=== PATIENT | male | born 1935 | race Caucasian/White ===

== ENCOUNTER 2020-07-01 15:50 | Inpatient (IN) ==
[2020-07-01] MEDS ORDERED: Ipratropium Bromide 15 ML Spray NS PRN (17:34)
[2020-07-01] MEDS ORDERED: *HR* HYDROcodone/Acet 5/325 mg TABLET PO PRN (17:34)
[2020-07-01] MEDS ORDERED: Menthol 9.1 MG LOZENGE PO PRN (17:34)
[2020-07-01] MEDS ORDERED: polyethylene glycoL 3350 17 GM POWD.PACK PO PRN (17:34)
[2020-07-01] MEDS: *HR* FentaNYL PATCH 25 MCG PATCH TD SCH (20:30)
[2020-07-01] MEDS ORDERED: Furosemide 40 MG TABLET PO SCH (21:00)
[2020-07-02] MEDS ORDERED: Saline Nasal Spray 44 ML BOTTLE NS PRN (03:56)
[2020-07-02 06:42] LABS: Basophils % 0.1 %; Eosinophils % 0.1 %; Hematocrit 35.3 % (37.5-50.1); Hemoglobin 11.6 g/dL (12.9-16.9); Immature Granulocytes % 0.4 % (0-4); Lymphocytes # 1.7 K/mcL (0.6-4.6); Lymphocytes % 12.4 %; Mean Corpuscular HGB Conc 32.9 g/dL (31.6-35.5); Mean Corpuscular Hemoglobin 28.6 pg (28.0-33.3); Mean Corpuscular Volume 86.9 fL (83.0-100.0); Mean Platelet Volume 10.4 fL (9.4-12.4); Monocytes # 1.4 K/mcL (0.0-1.3); Monocytes % 9.7 %; Neutrophils # 10.8 K/mcL (1.6-8.9); Platelet Count 182 K/mcL (140-400); Red Blood Count 4.06 M/mcL (4.19-5.50); Red Cell Distribution Width 13.8 % (11.5-14.5); Segmented Neutrophils % 77.3 %
[2020-07-02 07:13] LABS: BUN/Creatinine Ratio 42 (6-26); Blood Urea Nitrogen 31 mg/dL (8-23); Carbon Dioxide 35 mEq/L (23-29); Chloride 82 mEq/L (98-107); Glucose 144 mg/dL (70-105); Osmolality,Calculated 269 (280-300); Potassium 3.4 mEq/L (3.5-5.1); Sodium 125 mEq/L (136-145); eGFR For African Americans > 60 (> 60); eGFR For Non-African Americans > 60 (> 60)
[2020-07-02] MEDS ORDERED: Furosemide 40 MG TABLET PO SCH (08:00)
[2020-07-02] MEDS: carvediloL 6.25 MG TABLET PO SCH ×2 (08:36→18:12)
[2020-07-02] MEDS: Aspirin Enteric Coated 81 MG Tablet PO SCH (08:36)
[2020-07-02] MEDS: lisinopriL 5 MG TABLET PO SCH (08:36)
[2020-07-02] MEDS ORDERED: UBIDECARENONE 100 MG PO SCH (09:00)
[2020-07-02] MEDS: Ringers Solution, Lactated 1,000 ML IVC SCH ×2 (12:05→22:37)
[2020-07-02] MEDS ORDERED: *HR* Dextrose 50 % in Water (Vial) 50 ML VIAL IVP PRN (14:09)
[2020-07-02] MEDS ORDERED: Dextrose Gel 15 GM/37.5 ML TUBE PO PRN ×2 (14:09)
[2020-07-02] MEDS ORDERED: D5% in Water 1,000 ML IVC PRN (14:09)
[2020-07-02 17:21] LABS: Bilirubin,Urine Negative (Negative); Blood,Urine Trace-intact (Negative); Clarity,Urine Clear (Clear); Glucose,Urine (UA) Normal (Normal); Ketones,Urine Negative (Negative); Leukocyte Esterase,Urine Negative (Negative); Nitrite,Urine Negative (Negative); PH,Urine 6.5 pH Units (5.0-8.0); Protein,Urine Negative (Neg-Trace); Urobilinogen,Urine Normal (Normal)
[2020-07-02 17:32] LABS: Color,Urine Light Yellow (Yellow)
[2020-07-02 17:34] LABS: RBC,Urine 0-3 per hpf (0-3); Squamous Epithelial Cell,Urine Few per hpf (None-Few)
[2020-07-02] MEDS: Insulin LISPRO 300 UNITS/3 ML VIAL SUBQ SCH (18:05)
[2020-07-02] MEDS ORDERED: *HR* LORazepam 2 MG/ML VIAL IVP ONE (18:20)
[2020-07-03 05:29] LABS: Eosinophils % 0.5 %; Hematocrit 35.7 % (37.5-50.1); Hemoglobin 11.7 g/dL (12.9-16.9); Immature Granulocytes % 0.4 % (0-4); Lymphocytes # 1.8 K/mcL (0.6-4.6); Lymphocytes % 20.7 %; Mean Corpuscular HGB Conc 32.8 g/dL (31.6-35.5); Mean Corpuscular Hemoglobin 28.7 pg (28.0-33.3); Mean Corpuscular Volume 87.7 fL (83.0-100.0); Mean Platelet Volume 10.4 fL (9.4-12.4); Monocytes % 11.5 %; Neutrophils # 5.7 K/mcL (1.6-8.9); Platelet Count 184 K/mcL (140-400); Red Blood Count 4.07 M/mcL (4.19-5.50); Red Cell Distribution Width 13.8 % (11.5-14.5); Segmented Neutrophils % 66.9 %; White Blood Count 8.5 K/mcL (4.3-11.1)
[2020-07-03 05:54] LABS: Alanine Aminotransferase 26 Units/L (7-52); Albumin 3.7 g/dL (3.5-5.7); Albumin/Globulin Ratio 1.7 (1.1-2.2); Alkaline Phosphatase 52 Units/L (34-104); Aspartate Amino Transferase 21 Units/L (13-39); BUN/Creatinine Ratio 36 (6-26); Blood Urea Nitrogen 26 mg/dL (8-23); Carbon Dioxide 39 mEq/L (23-29); Chloride 86 mEq/L (98-107); Globulin 2.2 g/dL (2.4-3.5); Glucose 121 mg/dL (70-105); Osmolality,Calculated 276 (280-300); Potassium 3.7 mEq/L (3.5-5.1); Sodium 130 mEq/L (136-145); Total Protein 5.9 g/dL (6.4-8.9); eGFR For African Americans > 60 (> 60); eGFR For Non-African Americans > 60 (> 60)
[2020-07-03] MEDS: Insulin LISPRO 300 UNITS/3 ML VIAL SUBQ SCH ×3 (08:29→17:25)
[2020-07-03] MEDS: Aspirin Enteric Coated 81 MG Tablet PO SCH (08:29)
[2020-07-03] MEDS: carvediloL 6.25 MG TABLET PO SCH ×2 (08:30→17:25)
[2020-07-03] MEDS: lisinopriL 5 MG TABLET PO SCH (08:30)
[2020-07-03 09:08] LABS: Estimated Average Glucose 140 mg/dl; Hemoglobin A1C 6.5 %
[2020-07-03] MEDS ORDERED: Acetaminophen 325 MG TABLET PO PRN (13:50)
[2020-07-04] MEDS: Aspirin Enteric Coated 81 MG Tablet PO SCH (08:15)
[2020-07-04] MEDS: Insulin LISPRO 300 UNITS/3 ML VIAL SUBQ SCH ×4 (08:15→20:47)
[2020-07-04] MEDS: carvediloL 6.25 MG TABLET PO SCH ×2 (08:21→16:39)
[2020-07-04] MEDS: lisinopriL 5 MG TABLET PO SCH (08:21)
[2020-07-04] MEDS ORDERED: Ondansetron ODT 4 MG TAB.RAPDIS SL PRN (11:26)
[2020-07-04] MEDS: *HR* FentaNYL PATCH 25 MCG PATCH TD SCH (16:36)
[2020-07-04] MEDS: rOPINIRole 0.25 MG TABLET PO SCH (20:46)
[2020-07-04] MEDS: traZODone 50 MG TABLET PO PRN (20:47)
[2020-07-05] MEDS: carvediloL 6.25 MG TABLET PO SCH ×2 (08:20→17:33)
[2020-07-05] MEDS: Aspirin Enteric Coated 81 MG Tablet PO SCH (08:20)
[2020-07-05] MEDS: Insulin LISPRO 300 UNITS/3 ML VIAL SUBQ SCH ×4 (08:21→20:58)
[2020-07-05] MEDS: lisinopriL 5 MG TABLET PO SCH (08:21)
[2020-07-05] MEDS ORDERED: Ringers Solution, Lactated 500 ML IVC ONE ×2 (20:24→22:30)
[2020-07-05] MEDS: rOPINIRole 0.25 MG TABLET PO SCH (20:58)
[2020-07-06] MEDS: Insulin LISPRO 300 UNITS/3 ML VIAL SUBQ SCH ×4 (08:00→19:55)
[2020-07-06] MEDS: lisinopriL 5 MG TABLET PO SCH (08:05)
[2020-07-06] MEDS: Aspirin Enteric Coated 81 MG Tablet PO SCH (09:43)
[2020-07-06] MEDS: carvediloL 6.25 MG TABLET PO SCH ×2 (09:43→16:35)
[2020-07-06] MEDS: rOPINIRole 0.25 MG TABLET PO SCH (19:57)
[2020-07-06] MEDS: traZODone 50 MG TABLET PO PRN (19:57)
[2020-07-07] MEDS: Aspirin Enteric Coated 81 MG Tablet PO SCH (08:03)
[2020-07-07] MEDS: Insulin LISPRO 300 UNITS/3 ML VIAL SUBQ SCH ×4 (08:03→21:00)
[2020-07-07] MEDS: carvediloL 6.25 MG TABLET PO SCH ×2 (08:04→17:14)
[2020-07-07 10:49] LABS: Alanine Aminotransferase 20 Units/L (7-52); Albumin 3.9 g/dL (3.5-5.7); Albumin/Globulin Ratio 1.6 (1.1-2.2); Alkaline Phosphatase 59 Units/L (34-104); Aspartate Amino Transferase 15 Units/L (13-39); BUN/Creatinine Ratio 18 (6-26); Bilirubin,Total 0.6 mg/dL (0.3-1.0); Blood Urea Nitrogen 12 mg/dL (8-23); Carbon Dioxide 34 mEq/L (23-29); Chloride 93 mEq/L (98-107); Globulin 2.5 g/dL (2.4-3.5); Glucose 191 mg/dL (70-105); Osmolality,Calculated 277 (280-300); Potassium 4.6 mEq/L (3.5-5.1); Sodium 131 mEq/L (136-145); Total Protein 6.4 g/dL (6.4-8.9); eGFR For African Americans > 60 (> 60); eGFR For Non-African Americans > 60 (> 60)
[2020-07-07] MEDS: *HR* FentaNYL PATCH 25 MCG PATCH TD SCH (17:13)
[2020-07-07] MEDS: rOPINIRole 0.25 MG TABLET PO SCH (21:00)
[2020-07-08] MEDS: Insulin LISPRO 300 UNITS/3 ML VIAL SUBQ SCH ×4 (07:18→21:12)
[2020-07-08] MEDS: Furosemide 40 MG TABLET PO SCH (08:24)
[2020-07-08] MEDS: Aspirin Enteric Coated 81 MG Tablet PO SCH (08:24)
[2020-07-08] MEDS: polyethylene glycoL 3350 17 GM POWD.PACK PO SCH (08:25)
[2020-07-08] MEDS: carvediloL 6.25 MG TABLET PO SCH ×2 (08:25→16:12)
[2020-07-08] MEDS: traZODone 50 MG TABLET PO PRN (21:12)
[2020-07-08] MEDS: rOPINIRole 0.25 MG TABLET PO SCH (21:12)
[2020-07-09 07:25] LABS: Basophils % 0.3 %; Eosinophils # 0.1 K/mcL (0.0-0.6); Eosinophils % 1.9 %; Hematocrit 32.4 % (37.5-50.1); Hemoglobin 10.4 g/dL (12.9-16.9); Immature Granulocytes % 0.5 % (0-4); Lymphocytes # 1.6 K/mcL (0.6-4.6); Lymphocytes % 21.7 %; Mean Corpuscular HGB Conc 32.1 g/dL (31.6-35.5); Mean Corpuscular Volume 90.3 fL (83.0-100.0); Mean Platelet Volume 10.4 fL (9.4-12.4); Monocytes # 0.8 K/mcL (0.0-1.3); Monocytes % 10.2 %; Neutrophils # 4.9 K/mcL (1.6-8.9); Platelet Count 196 K/mcL (140-400); Red Blood Count 3.59 M/mcL (4.19-5.50); Red Cell Distribution Width 14.5 % (11.5-14.5); Segmented Neutrophils % 65.4 %; White Blood Count 7.4 K/mcL (4.3-11.1)
[2020-07-09 07:54] LABS: BUN/Creatinine Ratio 25 (6-26); Blood Urea Nitrogen 14 mg/dL (8-23); Calcium 8.5 mg/dL (8.6-10.3); Carbon Dioxide 36 mEq/L (23-29); Chloride 93 mEq/L (98-107); Glucose 146 mg/dL (70-105); Osmolality,Calculated 277 (280-300); Potassium 4.3 mEq/L (3.5-5.1); Sodium 132 mEq/L (136-145); eGFR For African Americans > 60 (> 60); eGFR For Non-African Americans > 60 (> 60)
[2020-07-09] MEDS: Furosemide 40 MG TABLET PO SCH (08:07)
[2020-07-09] MEDS: Aspirin Enteric Coated 81 MG Tablet PO SCH (08:07)
[2020-07-09] MEDS: carvediloL 6.25 MG TABLET PO SCH ×2 (08:07→17:01)
[2020-07-09] MEDS: Insulin LISPRO 300 UNITS/3 ML VIAL SUBQ SCH ×4 (08:07→20:46)
[2020-07-09] MEDS: polyethylene glycoL 3350 17 GM POWD.PACK PO SCH (08:08)
[2020-07-09] MEDS: *HR* Heparin 5,000 UNIT/ML VIAL SQ SCH (20:49)
[2020-07-09] MEDS: rOPINIRole 0.25 MG TABLET PO SCH (20:49)
[2020-07-09] MEDS: traZODone 50 MG TABLET PO PRN (20:49)
[2020-07-10] MEDS: *HR* Heparin 5,000 UNIT/ML VIAL SQ SCH ×2 (05:50→14:24)
[2020-07-10 07:39] VITALS: BP 112/69
[2020-07-10] MEDS: Insulin LISPRO 300 UNITS/3 ML VIAL SUBQ SCH ×2 (07:51→11:58)
[2020-07-10] MEDS: carvediloL 6.25 MG TABLET PO SCH (09:04)
[2020-07-10] MEDS: Aspirin Enteric Coated 81 MG Tablet PO SCH (09:04)
[2020-07-10] MEDS: polyethylene glycoL 3350 17 GM POWD.PACK PO SCH (09:04)
[2020-07-10] MEDS: Furosemide 40 MG TABLET PO SCH (09:04)
[2020-07-10] MEDS ORDERED: Lactulose 200 GM, Sodium Chloride IRRigation 700 ML RC ONE (12:58)
== END 2020-07-10 16:00 | disposition home health service (06) | DRG 945 ==
LOC: INPPIK 18:50
PROVIDERS: ADMIT Family Medicine; ATTEND Family Medicine

== ENCOUNTER 2020-07-16 16:57 | Inpatient (IN) ==
[2020-07-16] MEDS ORDERED: polyethylene glycoL 3350 17 GM POWD.PACK PO PRN (17:30)
[2020-07-16] MEDS ORDERED: (Ipratropium Bromide 15 ML Spray) NS PRN (19:23)
[2020-07-16] MEDS: carvediloL 6.25 MG TABLET PO SCH (20:59)
[2020-07-16] MEDS: Apixaban 5 MG TABLET PO SCH (20:59)
[2020-07-16] MEDS: rOPINIRole 0.25 MG TABLET PO SCH (20:59)
[2020-07-16] MEDS ORDERED: Menthol 9.1 MG LOZENGE PO PRN (22:36)
[2020-07-17] MEDS: traZODone 50 MG TABLET PO PRN ×2 (01:46→21:44)
[2020-07-17 05:24] LABS: Basophils % 0.3 %; Eosinophils # 0.1 K/mcL (0.0-0.6); Eosinophils % 1.5 %; Hematocrit 30.7 % (37.5-50.1); Hemoglobin 9.7 g/dL (12.9-16.9); Immature Granulocytes % 0.4 % (0-4); Lymphocytes # 1.5 K/mcL (0.6-4.6); Lymphocytes % 18.2 %; Mean Corpuscular HGB Conc 31.6 g/dL (31.6-35.5); Mean Corpuscular Volume 91.6 fL (83.0-100.0); Mean Platelet Volume 10.4 fL (9.4-12.4); Monocytes # 0.7 K/mcL (0.0-1.3); Monocytes % 8.3 %; Neutrophils # 5.7 K/mcL (1.6-8.9); Platelet Count 130 K/mcL (140-400); Red Blood Count 3.35 M/mcL (4.19-5.50); Red Cell Distribution Width 15.2 % (11.5-14.5); Segmented Neutrophils % 71.3 %
[2020-07-17 05:47] LABS: BUN/Creatinine Ratio 13 (6-26); Blood Urea Nitrogen 7 mg/dL (8-23); Calcium 8.7 mg/dL (8.6-10.3); Carbon Dioxide 35 mEq/L (23-29); Chloride 94 mEq/L (98-107); Glucose 115 mg/dL (70-105); Osmolality,Calculated 277 (280-300); Potassium 3.8 mEq/L (3.5-5.1); Sodium 134 mEq/L (136-145); eGFR For African Americans > 60 (> 60); eGFR For Non-African Americans > 60 (> 60)
[2020-07-17 06:18] LABS: Platelet Estimate Slight Decrease (Normal)
[2020-07-17] MEDS: lisinopriL 5 MG TABLET PO SCH (08:22)
[2020-07-17] MEDS: UBIDECARENONE 100 MG PO SCH (08:22)
[2020-07-17] MEDS: Aspirin Enteric Coated 81 MG Tablet PO SCH (08:22)
[2020-07-17] MEDS: carvediloL 6.25 MG TABLET PO SCH ×2 (08:22→21:44)
[2020-07-17] MEDS: Apixaban 5 MG TABLET PO SCH ×2 (08:22→21:44)
[2020-07-17] MEDS ORDERED: polyethylene glycoL 3350 17 GM POWD.PACK PO PRN (15:15)
[2020-07-17] MEDS: Sennosides/Docusate Sodium TABLET PO SCH (21:43)
[2020-07-17] MEDS: Gabapentin 300 MG CAPSULE PO SCH (21:44)
[2020-07-17] MEDS: rOPINIRole 0.25 MG TABLET PO SCH (21:44)
[2020-07-18 05:33] LABS: Alanine Aminotransferase 41 Units/L (7-52); Albumin 3.1 g/dL (3.5-5.7); Albumin/Globulin Ratio 1.4 (1.1-2.2); Alkaline Phosphatase 63 Units/L (34-104); Aspartate Amino Transferase 18 Units/L (13-39); BUN/Creatinine Ratio 19 (6-26); Bilirubin,Total 0.7 mg/dL (0.3-1.0); Blood Urea Nitrogen 10 mg/dL (8-23); Calcium 8.7 mg/dL (8.6-10.3); Carbon Dioxide 37 mEq/L (23-29); Chloride 94 mEq/L (98-107); Globulin 2.2 g/dL (2.4-3.5); Glucose 121 mg/dL (70-105); Osmolality,Calculated 278 (280-300); Potassium 4.1 mEq/L (3.5-5.1); Sodium 134 mEq/L (136-145); Total Protein 5.3 g/dL (6.4-8.9); eGFR For African Americans > 60 (> 60); eGFR For Non-African Americans > 60 (> 60)
[2020-07-18] MEDS: lisinopriL 5 MG TABLET PO SCH (08:12)
[2020-07-18] MEDS: carvediloL 6.25 MG TABLET PO SCH ×2 (08:12→21:38)
[2020-07-18] MEDS: Sennosides/Docusate Sodium TABLET PO SCH ×2 (08:12→21:38)
[2020-07-18] MEDS: UBIDECARENONE 100 MG PO SCH (08:13)
[2020-07-18] MEDS: Aspirin Enteric Coated 81 MG Tablet PO SCH (08:13)
[2020-07-18] MEDS: Apixaban 5 MG TABLET PO SCH ×2 (08:13→21:38)
[2020-07-18] MEDS: Gabapentin 300 MG CAPSULE PO SCH ×3 (08:13→21:38)
[2020-07-18] MEDS ORDERED: polyethylene glycoL 3350 17 GM POWD.PACK PO SCH (09:00)
[2020-07-18] MEDS: rOPINIRole 0.25 MG TABLET PO SCH (21:38)
[2020-07-19] MEDS: Aspirin Enteric Coated 81 MG Tablet PO SCH (10:07)
[2020-07-19] MEDS: Apixaban 5 MG TABLET PO SCH ×2 (10:08→19:34)
[2020-07-19] MEDS: Sennosides/Docusate Sodium TABLET PO SCH ×2 (10:08→19:34)
[2020-07-19] MEDS: lisinopriL 5 MG TABLET PO SCH (10:08)
[2020-07-19] MEDS: Gabapentin 300 MG CAPSULE PO SCH ×3 (10:08→19:34)
[2020-07-19] MEDS: carvediloL 6.25 MG TABLET PO SCH ×2 (10:08→19:34)
[2020-07-19] MEDS: UBIDECARENONE 100 MG PO SCH (10:10)
[2020-07-19] MEDS: *HR* Metformin 500 MG TABLET PO SCH (18:08)
[2020-07-19] MEDS: traZODone 50 MG TABLET PO PRN (19:34)
[2020-07-19] MEDS: rOPINIRole 0.25 MG TABLET PO SCH (19:34)
[2020-07-20] MEDS: Sennosides/Docusate Sodium TABLET PO SCH ×2 (09:57→20:36)
[2020-07-20] MEDS: Gabapentin 300 MG CAPSULE PO SCH ×2 (09:58→14:33)
[2020-07-20] MEDS: lisinopriL 5 MG TABLET PO SCH (09:58)
[2020-07-20] MEDS: *HR* Metformin 500 MG TABLET PO SCH ×2 (09:58→17:38)
[2020-07-20] MEDS: carvediloL 6.25 MG TABLET PO SCH ×2 (09:58→19:38)
[2020-07-20] MEDS: Apixaban 5 MG TABLET PO SCH ×2 (09:58→20:37)
[2020-07-20] MEDS: Aspirin Enteric Coated 81 MG Tablet PO SCH (09:58)
[2020-07-20] MEDS: UBIDECARENONE 100 MG PO SCH (09:59)
[2020-07-20] MEDS: Gabapentin 100 MG CAPSULE PO SCH (20:36)
[2020-07-20] MEDS: rOPINIRole 0.25 MG TABLET PO SCH (20:36)
[2020-07-21] MEDS: Acetaminophen 325 MG TABLET PO PRN (07:09)
[2020-07-21] MEDS: carvediloL 6.25 MG TABLET PO SCH ×2 (08:03→21:33)
[2020-07-21] MEDS: *HR* Metformin 500 MG TABLET PO SCH ×2 (08:04→17:11)
[2020-07-21] MEDS: Aspirin Enteric Coated 81 MG Tablet PO SCH (08:04)
[2020-07-21] MEDS: Apixaban 5 MG TABLET PO SCH ×2 (08:04→21:33)
[2020-07-21] MEDS: lisinopriL 5 MG TABLET PO SCH (08:04)
[2020-07-21] MEDS: Gabapentin 100 MG CAPSULE PO SCH ×2 (08:04→17:23)
[2020-07-21] MEDS: UBIDECARENONE 100 MG PO SCH (08:05)
[2020-07-21] MEDS: Sennosides/Docusate Sodium TABLET PO SCH ×2 (08:05→21:43)
[2020-07-21] MEDS: rOPINIRole 0.25 MG TABLET PO SCH (21:32)
[2020-07-21] MEDS: Gabapentin 300 MG CAPSULE PO SCH (21:33)
[2020-07-22] MEDS: Acetaminophen 325 MG TABLET PO PRN (06:31)
[2020-07-22] MEDS: Sennosides/Docusate Sodium TABLET PO SCH ×2 (08:33→20:34)
[2020-07-22] MEDS: carvediloL 6.25 MG TABLET PO SCH ×2 (08:34→20:35)
[2020-07-22] MEDS: *HR* Metformin 500 MG TABLET PO SCH ×2 (08:34→17:16)
[2020-07-22] MEDS: Aspirin Enteric Coated 81 MG Tablet PO SCH (08:34)
[2020-07-22] MEDS: Apixaban 5 MG TABLET PO SCH ×2 (08:34→20:35)
[2020-07-22] MEDS: UBIDECARENONE 100 MG PO SCH (08:34)
[2020-07-22] MEDS: lisinopriL 5 MG TABLET PO SCH (08:34)
[2020-07-22] MEDS: Gabapentin 300 MG CAPSULE PO SCH (20:35)
[2020-07-22] MEDS: rOPINIRole 0.25 MG TABLET PO SCH (20:35)
[2020-07-23 07:33] LABS: Basophils % 0.2 %; Eosinophils # 0.1 K/mcL (0.0-0.6); Eosinophils % 1.4 %; Hematocrit 32.9 % (37.5-50.1); Hemoglobin 10.9 g/dL (12.9-16.9); Immature Granulocytes % 0.3 % (0-4); Lymphocytes # 1.1 K/mcL (0.6-4.6); Lymphocytes % 17.5 %; Mean Corpuscular HGB Conc 33.1 g/dL (31.6-35.5); Mean Corpuscular Hemoglobin 29.3 pg (28.0-33.3); Mean Corpuscular Volume 88.4 fL (83.0-100.0); Mean Platelet Volume 10.2 fL (9.4-12.4); Monocytes # 0.7 K/mcL (0.0-1.3); Monocytes % 10.6 %; Neutrophils # 4.6 K/mcL (1.6-8.9); Platelet Count 194 K/mcL (140-400); Red Blood Count 3.72 M/mcL (4.19-5.50); Red Cell Distribution Width 14.8 % (11.5-14.5); White Blood Count 6.5 K/mcL (4.3-11.1)
[2020-07-23 07:46] LABS: BUN/Creatinine Ratio 16 (6-26); Blood Urea Nitrogen 7 mg/dL (8-23); Calcium 8.6 mg/dL (8.6-10.3); Carbon Dioxide 32 mEq/L (23-29); Chloride 88 mEq/L (98-107); Glucose 129 mg/dL (70-105); Osmolality,Calculated 258 (280-300); Potassium 4.2 mEq/L (3.5-5.1); Sodium 124 mEq/L (136-145); eGFR For African Americans > 60 (> 60); eGFR For Non-African Americans > 60 (> 60)
[2020-07-23] MEDS: UBIDECARENONE 100 MG PO SCH (09:00)
[2020-07-23] MEDS: Aspirin Enteric Coated 81 MG Tablet PO SCH (09:01)
[2020-07-23] MEDS: Apixaban 5 MG TABLET PO SCH ×2 (09:01→20:52)
[2020-07-23] MEDS: carvediloL 6.25 MG TABLET PO SCH ×2 (09:01→20:52)
[2020-07-23] MEDS: Sennosides/Docusate Sodium TABLET PO SCH (09:01)
[2020-07-23] MEDS: *HR* Metformin 500 MG TABLET PO SCH ×2 (09:03→17:23)
[2020-07-23 09:38] LABS: Magnesium 1.6 mg/dL (1.6-2.6); Phosphorous 2.5 mg/dL (2.7-4.5)
[2020-07-23] MEDS: Acetaminophen 325 MG TABLET PO PRN (14:59)
[2020-07-23] MEDS: Ringers Solution, Lactated 1,000 ML IVC SCH (15:21)
[2020-07-23 16:58] LABS: Alanine Aminotransferase 23 Units/L (7-52); Albumin 3.2 g/dL (3.5-5.7); Albumin/Globulin Ratio 1.3 (1.1-2.2); Alkaline Phosphatase 69 Units/L (34-104); Aspartate Amino Transferase 17 Units/L (13-39); BUN/Creatinine Ratio 21 (6-26); Bilirubin,Total 0.4 mg/dL (0.3-1.0); Blood Urea Nitrogen 9 mg/dL (8-23); Calcium 8.2 mg/dL (8.6-10.3); Carbon Dioxide 31 mEq/L (23-29); Chloride 89 mEq/L (98-107); Globulin 2.4 g/dL (2.4-3.5); Glucose 111 mg/dL (70-105); Osmolality,Calculated 259 (280-300); Potassium 4.3 mEq/L (3.5-5.1); Sodium 125 mEq/L (136-145); Total Protein 5.6 g/dL (6.4-8.9); eGFR For African Americans > 60 (> 60); eGFR For Non-African Americans > 60 (> 60)
[2020-07-23] MEDS: rOPINIRole 0.25 MG TABLET PO SCH (20:52)
[2020-07-23] MEDS: traZODone 50 MG TABLET PO PRN (20:52)
[2020-07-23] MEDS: Gabapentin 300 MG CAPSULE PO SCH (20:52)
[2020-07-24] MEDS: Ringers Solution, Lactated 1,000 ML IVC SCH (00:03)
[2020-07-24] MEDS ORDERED: Ringers Solution, Lactated 1,000 ML IVC SCH (01:30)
[2020-07-24 06:09] LABS: Alanine Aminotransferase 23 Units/L (7-52); Albumin 3.2 g/dL (3.5-5.7); Albumin/Globulin Ratio 1.3 (1.1-2.2); Alkaline Phosphatase 70 Units/L (34-104); Aspartate Amino Transferase 16 Units/L (13-39); BUN/Creatinine Ratio 14 (6-26); Bilirubin,Total 0.5 mg/dL (0.3-1.0); Blood Urea Nitrogen 7 mg/dL (8-23); Calcium 8.7 mg/dL (8.6-10.3); Carbon Dioxide 35 mEq/L (23-29); Chloride 95 mEq/L (98-107); Globulin 2.4 g/dL (2.4-3.5); Glucose 100 mg/dL (70-105); Osmolality,Calculated 274 (280-300); Phosphorous 3.1 mg/dL (2.7-4.5); Potassium 4.1 mEq/L (3.5-5.1); Sodium 133 mEq/L (136-145); Total Protein 5.6 g/dL (6.4-8.9); eGFR For African Americans > 60 (> 60); eGFR For Non-African Americans > 60 (> 60)
[2020-07-24] MEDS: UBIDECARENONE 100 MG PO SCH (09:43)
[2020-07-24] MEDS: carvediloL 6.25 MG TABLET PO SCH (09:44)
[2020-07-24] MEDS: Aspirin Enteric Coated 81 MG Tablet PO SCH (09:44)
[2020-07-24] MEDS: Apixaban 5 MG TABLET PO SCH ×2 (09:45→21:10)
[2020-07-24] MEDS: *HR* Metformin 500 MG TABLET PO SCH ×2 (09:45→17:03)
[2020-07-24] MEDS: Acetaminophen 325 MG TABLET PO PRN (15:06)
[2020-07-24] MEDS: traZODone 50 MG TABLET PO PRN (21:10)
[2020-07-24] MEDS: rOPINIRole 0.25 MG TABLET PO SCH (21:10)
[2020-07-24] MEDS: Gabapentin 300 MG CAPSULE PO SCH (21:10)
[2020-07-25 04:30] LABS: Alanine Aminotransferase 22 Units/L (7-52); Albumin 3.2 g/dL (3.5-5.7); Albumin/Globulin Ratio 1.5 (1.1-2.2); Alkaline Phosphatase 67 Units/L (34-104); Aspartate Amino Transferase 15 Units/L (13-39); BUN/Creatinine Ratio 20 (6-26); Bilirubin,Total 0.4 mg/dL (0.3-1.0); Blood Urea Nitrogen 10 mg/dL (8-23); Calcium 8.5 mg/dL (8.6-10.3); Carbon Dioxide 35 mEq/L (23-29); Chloride 97 mEq/L (98-107); Globulin 2.2 g/dL (2.4-3.5); Glucose 113 mg/dL (70-105); Osmolality,Calculated 282 (280-300); Potassium 4.3 mEq/L (3.5-5.1); Sodium 136 mEq/L (136-145); Total Protein 5.4 g/dL (6.4-8.9); eGFR For African Americans > 60 (> 60); eGFR For Non-African Americans > 60 (> 60)
[2020-07-25] MEDS: *HR* Metformin 500 MG TABLET PO SCH ×2 (08:53→17:10)
[2020-07-25] MEDS: Apixaban 5 MG TABLET PO SCH ×2 (08:53→21:05)
[2020-07-25] MEDS: Aspirin Enteric Coated 81 MG Tablet PO SCH (08:53)
[2020-07-25] MEDS: UBIDECARENONE 100 MG PO SCH (08:55)
[2020-07-25] MEDS: Acetaminophen 325 MG TABLET PO PRN (12:03)
[2020-07-25] MEDS ORDERED: Metoprolol XL (24 HR) Succ 25 MG TAB.ER.24H PO SCH ×2 (18:00)
[2020-07-25] MEDS: rOPINIRole 0.25 MG TABLET PO SCH (21:04)
[2020-07-25] MEDS: Gabapentin 300 MG CAPSULE PO SCH (21:05)
[2020-07-25] MEDS: traZODone 50 MG TABLET PO SCH (21:05)
[2020-07-26] MEDS: Acetaminophen 325 MG TABLET PO PRN (01:45)
[2020-07-26 08:14] LABS: Alanine Aminotransferase 19 Units/L (7-52); Albumin 3.1 g/dL (3.5-5.7); Albumin/Globulin Ratio 1.3 (1.1-2.2); Alkaline Phosphatase 63 Units/L (34-104); Aspartate Amino Transferase 16 Units/L (13-39); BUN/Creatinine Ratio 23 (6-26); Bilirubin,Total 0.4 mg/dL (0.3-1.0); Blood Urea Nitrogen 11 mg/dL (8-23); Calcium 8.3 mg/dL (8.6-10.3); Carbon Dioxide 33 mEq/L (23-29); Chloride 96 mEq/L (98-107); Globulin 2.3 g/dL (2.4-3.5); Glucose 107 mg/dL (70-105); Osmolality,Calculated 276 (280-300); Potassium 4.2 mEq/L (3.5-5.1); Sodium 133 mEq/L (136-145); Total Protein 5.4 g/dL (6.4-8.9); eGFR For African Americans > 60 (> 60); eGFR For Non-African Americans > 60 (> 60)
[2020-07-26] MEDS: *HR* Metformin 500 MG TABLET PO SCH ×2 (09:24→17:10)
[2020-07-26] MEDS: Aspirin Enteric Coated 81 MG Tablet PO SCH (09:25)
[2020-07-26] MEDS: Apixaban 5 MG TABLET PO SCH ×2 (09:25→21:13)
[2020-07-26] MEDS: UBIDECARENONE 100 MG PO SCH (09:26)
[2020-07-26] MEDS: Metoprolol XL (24 HR) Succ 25 MG TAB.ER.24H PO SCH (12:18)
[2020-07-26] MEDS: Gabapentin 300 MG CAPSULE PO SCH (21:13)
[2020-07-26] MEDS: rOPINIRole 0.25 MG TABLET PO SCH (21:13)
[2020-07-26] MEDS: traZODone 50 MG TABLET PO SCH (21:14)
[2020-07-27 08:03] LABS: Alanine Aminotransferase 68 Units/L (7-52); Albumin 3.2 g/dL (3.5-5.7); Albumin/Globulin Ratio 1.4 (1.1-2.2); Alkaline Phosphatase 78 Units/L (34-104); Aspartate Amino Transferase 51 Units/L (13-39); BUN/Creatinine Ratio 30 (6-26); Bilirubin,Total 0.5 mg/dL (0.3-1.0); Blood Urea Nitrogen 13 mg/dL (8-23); Calcium 8.6 mg/dL (8.6-10.3); Carbon Dioxide 34 mEq/L (23-29); Chloride 96 mEq/L (98-107); Globulin 2.3 g/dL (2.4-3.5); Glucose 99 mg/dL (70-105); Osmolality,Calculated 280 (280-300); Potassium 4.4 mEq/L (3.5-5.1); Sodium 135 mEq/L (136-145); Total Protein 5.5 g/dL (6.4-8.9); eGFR For African Americans > 60 (> 60); eGFR For Non-African Americans > 60 (> 60)
[2020-07-27] MEDS: Aspirin Enteric Coated 81 MG Tablet PO SCH (08:15)
[2020-07-27] MEDS: *HR* Metformin 500 MG TABLET PO SCH ×2 (08:15→16:48)
[2020-07-27] MEDS: Apixaban 5 MG TABLET PO SCH ×2 (08:15→20:45)
[2020-07-27] MEDS: UBIDECARENONE 100 MG PO SCH (08:23)
[2020-07-27] MEDS: Metoprolol XL (24 HR) Succ 25 MG TAB.ER.24H PO SCH (12:08)
[2020-07-27] MEDS: Gabapentin 300 MG CAPSULE PO SCH (20:45)
[2020-07-27] MEDS: rOPINIRole 0.25 MG TABLET PO SCH (20:45)
[2020-07-27] MEDS: traZODone 50 MG TABLET PO SCH (20:45)
[2020-07-28] MEDS: Aspirin Enteric Coated 81 MG Tablet PO SCH (08:32)
[2020-07-28] MEDS: *HR* Metformin 500 MG TABLET PO SCH ×2 (08:33→16:49)
[2020-07-28] MEDS: Apixaban 5 MG TABLET PO SCH ×2 (08:37→21:33)
[2020-07-28 10:18] LABS: Alanine Aminotransferase 53 Units/L (7-52); Albumin 3.3 g/dL (3.5-5.7); Albumin/Globulin Ratio 1.4 (1.1-2.2); Alkaline Phosphatase 73 Units/L (34-104); Aspartate Amino Transferase 30 Units/L (13-39); BUN/Creatinine Ratio 26 (6-26); Bilirubin,Total 0.5 mg/dL (0.3-1.0); Blood Urea Nitrogen 12 mg/dL (8-23); Calcium 8.7 mg/dL (8.6-10.3); Carbon Dioxide 36 mEq/L (23-29); Chloride 93 mEq/L (98-107); Globulin 2.4 g/dL (2.4-3.5); Glucose 111 mg/dL (70-105); Osmolality,Calculated 276 (280-300); Potassium 4.4 mEq/L (3.5-5.1); Sodium 133 mEq/L (136-145); Total Protein 5.7 g/dL (6.4-8.9); eGFR For African Americans > 60 (> 60); eGFR For Non-African Americans > 60 (> 60)
[2020-07-28] MEDS: UBIDECARENONE 100 MG PO SCH (11:23)
[2020-07-28] MEDS: Metoprolol XL (24 HR) Succ 25 MG TAB.ER.24H PO SCH (11:44)
[2020-07-28] MEDS: traZODone 50 MG TABLET PO SCH (21:33)
[2020-07-28] MEDS: Gabapentin 300 MG CAPSULE PO SCH (21:33)
[2020-07-28] MEDS: rOPINIRole 0.25 MG TABLET PO SCH (21:33)
[2020-07-29 07:24] LABS: Alanine Aminotransferase 43 Units/L (7-52); Albumin 3.2 g/dL (3.5-5.7); Albumin/Globulin Ratio 1.5 (1.1-2.2); Alkaline Phosphatase 67 Units/L (34-104); Aspartate Amino Transferase 22 Units/L (13-39); BUN/Creatinine Ratio 33 (6-26); Bilirubin,Total 0.5 mg/dL (0.3-1.0); Blood Urea Nitrogen 17 mg/dL (8-23); Calcium 8.6 mg/dL (8.6-10.3); Carbon Dioxide 37 mEq/L (23-29); Chloride 95 mEq/L (98-107); Globulin 2.2 g/dL (2.4-3.5); Glucose 102 mg/dL (70-105); Osmolality,Calculated 282 (280-300); Potassium 4.3 mEq/L (3.5-5.1); Sodium 135 mEq/L (136-145); Total Protein 5.4 g/dL (6.4-8.9); eGFR For African Americans > 60 (> 60); eGFR For Non-African Americans > 60 (> 60)
[2020-07-29] MEDS: Aspirin Enteric Coated 81 MG Tablet PO SCH (08:04)
[2020-07-29] MEDS: Apixaban 5 MG TABLET PO SCH ×2 (08:05→21:49)
[2020-07-29] MEDS: *HR* Metformin 500 MG TABLET PO SCH ×2 (08:06→16:29)
[2020-07-29] MEDS: UBIDECARENONE 100 MG PO SCH (08:10)
[2020-07-29] MEDS: Metoprolol XL (24 HR) Succ 25 MG TAB.ER.24H PO SCH (12:12)
[2020-07-29] MEDS: traZODone 50 MG TABLET PO SCH (21:49)
[2020-07-29] MEDS: rOPINIRole 0.25 MG TABLET PO SCH (21:49)
[2020-07-29] MEDS: Gabapentin 300 MG CAPSULE PO SCH (21:50)
[2020-07-30] MEDS: Aspirin Enteric Coated 81 MG Tablet PO SCH (08:53)
[2020-07-30] MEDS: *HR* Metformin 500 MG TABLET PO SCH ×2 (08:54→15:29)
[2020-07-30] MEDS: UBIDECARENONE 100 MG PO SCH (08:54)
[2020-07-30] MEDS: Apixaban 5 MG TABLET PO SCH ×2 (08:54→20:19)
[2020-07-30] MEDS: Metoprolol XL (24 HR) Succ 25 MG TAB.ER.24H PO SCH (12:30)
[2020-07-30] MEDS: traZODone 50 MG TABLET PO SCH (20:18)
[2020-07-30] MEDS: rOPINIRole 0.25 MG TABLET PO SCH (20:18)
[2020-07-30] MEDS: Gabapentin 300 MG CAPSULE PO SCH (20:18)
[2020-07-31] MEDS: UBIDECARENONE 100 MG PO SCH (08:09)
[2020-07-31] MEDS: Aspirin Enteric Coated 81 MG Tablet PO SCH (08:09)
[2020-07-31] MEDS: Apixaban 5 MG TABLET PO SCH ×2 (08:09→21:12)
[2020-07-31] MEDS: *HR* Metformin 500 MG TABLET PO SCH ×2 (08:09→17:30)
[2020-07-31] MEDS: Metoprolol XL (24 HR) Succ 25 MG TAB.ER.24H PO SCH (12:59)
[2020-07-31] MEDS: rOPINIRole 0.25 MG TABLET PO SCH (21:11)
[2020-07-31] MEDS: Gabapentin 300 MG CAPSULE PO SCH (21:11)
[2020-07-31] MEDS: traZODone 50 MG TABLET PO SCH (21:12)
[2020-08-01 06:40] VITALS: BP 102/55
[2020-08-01] MEDS: *HR* Metformin 500 MG TABLET PO SCH (07:55)
[2020-08-01] MEDS: Apixaban 5 MG TABLET PO SCH (07:55)
[2020-08-01] MEDS: UBIDECARENONE 100 MG PO SCH (07:55)
[2020-08-01] MEDS: Aspirin Enteric Coated 81 MG Tablet PO SCH (07:55)
[2020-08-01] MEDS: Metoprolol XL (24 HR) Succ 25 MG TAB.ER.24H PO SCH (12:18)
== END 2020-08-01 15:30 | disposition hospice, home (50) | DRG 945 ==
LOC: INPPIK 18:58
PROVIDERS: ADMIT Family Medicine; ATTEND Family Medicine